=== PATIENT | female | born 1955 | race Caucasian/White ===

== ENCOUNTER 2016-11-12 09:12 | Emergency (ER) | payer BC ==
[~2016-11-12] VITALS: Ht 154.9 cm; Wt 128.4 kg
[~2016-11-12 09:12] MED LIST: ALPR.5T PO; ARIP15TA PO; ASCO100083 PO; BUPR150T49 PO; CALC-250 PO; CEPH500C PO; CHOL500019 PO; CPR500T PO; CYAN10007 PO; DCS100C PO; DOCU50LI GT; DOXY100C2 PO; DULO30CA3 PO; DULO60CA6 PO; FRS325T PO; HYDR-2890 PO; HYDR-3714 PO; IRON18TA PO; LACT1CAP62 PO; MAGN400T6 PO; MEDR5TAB4 PO; MELO-195 PO; MELO15TA14 PO; METF500T8 PO; MULT-608 PO; MULT1CAP27 PO; OMEP20CA12 PO; OXYC-12 PO; PAPA100T PO; POTASSIUM PO; PRED10TA PO; TRAZ150T42 PO; ZLP5T PO; [UNRECOGNIZED DRUG - CODE] PO; [UNRECOGNIZED DRUG - OTHER] MC; [UNRECOGNIZED DRUG - OTHER] PO
--- OUTSIDE RECORDS SUMMARY | 2016-11-12 09:18 | XMS REPORT | Continuity of Care Document ---
Author Author [facility] Organization [facility] Address Unknown Phone Unavailable Care Team Providers Care Building Materials Sales Attendant Name Role Phone SETH CLEMENS DO PCP Insurance Providers Payer Name Policy Number Subscriber Name Relationship [id number] Bhanu Gomez Advance Directives Directive Response Recorded Date/Time Advance Directives No 05/01/14 8:43am Health Care Power of Development Vice President No 05/01/14 8:43am Organ Donor Yes 05/01/14 8:43am Problems Active Problems Medical Problem Onset Date Status Abdominal wall pain Unknown Acute Medications Current Home Medications Medication Dose Units Route Directions Days/Qty Instructions Start Date Alprazolam 0.5 Mg 1 Tab Oral Daily 04/25/10 Zolpidem Tartrate 5 Mg 5 Mg Oral Bedtime 10/16/13 Meloxicam (Mobic) 15 Mg 15 Mg Oral Daily 10/16/13 Metformin Hcl (Glucophage Xr) 500 Mg 1 Each Oral Daily With Meal Magnesium Oxide 400 Mg 1 Each Oral Daily With Food 10/16/13 Duloxetine Hcl 30 Mg 30 Mg Oral Daily 03/19/14 7-Oxodehydroepiandrosterone 5 Gm 5 Gm Miscell Daily 03/19/14 Multivitamins 1 Each 2 Each Oral Twice A Day 04/01/14 Cyanocobalamin 1,000 Mcg 2,500 Mcg Oral Daily 04/01/14 Cholecalciferol (Vitamin D3) 50,000 Unit 50,000 Unit Oral Weekly 11/14 Papain 100 Mg 3 Tab Oral After Meals 04/01/14 Lactobacillus Acidophilus 1 Each 1 Each Oral Daily 04/01/14 Hydrocodone Bit/Acetaminophen 1 Each 1 Each Oral Every 4HRS as needed for Pain 40 04/06/14 Iron 18 Mg 65 Mg Oral Every Other Day 04/24/14 Omeprazole 20 Mg 20 Mg Oral Daily 30 05/01/14 Past Home Medications Medication Directions Ordered Status Aripiprazole 15 Mg Tab, 1 Tab Oral Bedtime 04/25/10 Discontinued Duloxetine Hcl 60 Mg Capsule.dr, 2 Each Oral Daily 04/25/10 Discontinued Meloxicam 15 Mg Tablet, 1 Each Oral Daily 04/25/10 Discontinued Multivitamins 1 Tab Tablet, 1 Tab Oral Daily 04/25/10 Discontinued [Potassium] , Oral Daily 04/25/10 Discontinued Oxycodone Hcl/Acetaminophen 1 Each Tablet, 1 Each Oral Every 6 Hours as needed 05/30/10 Discontinued Ferrous Sulfate 325 Mg Tab, 325 Mg Oral Daily 05/30/10 Discontinued Docusate Sodium 100 Mg/10 Ml Liquid, 100 Mg G Tube Daily 05/30/10 Discontinued Doxycycline Hyclate (Vibramycin) 100 Mg Capsule, 1 Each Oral Twice A Day 30/07 Discontinued Ciprofloxacin 500 Mg Tablet, 1 Tab Oral Twice A Day 05/30/10 Discontinued Oxycodone Hcl/Acetaminophen 1 Each Tablet, 1 Each Oral Every 6 Hours Discontinued Docusate Sodium 100 Mg Capsule, 100 Mg Oral Twice A Day 04/25/12 Discontinued Medroxyprogesterone Acetate (Provera) 5 Mg Tablet, 1 Each Oral Daily Discontinued Trazodone Hcl 150 Mg Tablet, 150 Mg Oral Bedtime 04/25/12 Discontinued Hydrocodone Bit/Acetaminophen 1 Each Tablet, 1 Each Oral Four Times Daily as needed 04/25/12 Discontinued Calcium Carbonate/Vitamin D3 1 Each Tablet, 1 Each Oral Daily 10/16/13 Discontinued Cyanocobalamin 1,000 Mcg Tablet.sa, 1000 Mcg Oral Daily 10/16/13 Discontinued Ascorbic Acid 1,000 Mg Tab.chew, 1000 Mg Oral Daily 10/16/13 Discontinued Cephalexin Monohydrate (Keflex) 500 Mg Capsule, 1 Each Oral Four Times Daily 10/17/13 Discontinued Bupropion Hcl 150 Mg Tablet.sa, 150 Mg Oral Daily 03/19/14 Discontinued Hydrocodone Bit/Acetaminophen 1 Tab Tablet, 1 Tab Oral As Needed as needed for Pain 04/01/14 Discontinued Prednisone 10 Mg Tablet, 10 Mg Oral As Directed 04/01/14 Discontinued [Uvaursa] , 880 Mg Oral Daily 04/01/14 Discontinued Shark Cartilage 500 Mg Capsule, 2000 Mg Oral Twice A Day 04/01/14 Discontinued Social History Social History Problem Response Recorded Date/Time Alcohol Use Denies Use 04/24/2014 10:48am Recreational Drug Use No 04/24/2014 10:48am Recent Foreign Travel No 01/07/2016 1:06pm Sexually Transmitted Disease No 04/24/2014 10:48am Hospital Discharge Instructions No hospital discharge instructions. Plan of Care Prescriptions See Medication Section Functional Status No functional status results. Allergies, Adverse Reactions, Alerts No known allergies. Immunizations Name Given Type Date of Pneumonia Vaccine 10/01/11 Historical Date of Influenza Vaccine 07/17/13 Historical Vital Signs No known vital signs results. Results Pending Laboratory Results Test Name Collection Date/Time Procedures Procedure Status Date Provider(s) Color Doppler echocardiography Active 01/03/16 ATILIO WELLER Encounters Encounter Location Arrival/Admit Date Discharge/Depart Date Attending Provider Discharged Recurring [facility] 01/18/16 11:33am 3:00pm CHIQUITA POLLOCK MD Registered Clinic [facility] 01/11/16 2:07pm CHIQUITA POLLOCK MD Registered Clinic [facility] 01/07/16 2:41pm CHIQUITA POLLOCK MD Registered Clinic [facility] 01/03/16 3:56pm SETH CLEMENS DO Registered Clinic [facility] 01/03/16 1:26pm ATILIO TINOCO
[2016-11-12 09:34] LABS: BASOPHILS % (AUTO) 0 % (0-10); EOSINOPHILS # (AUTO) 0.3 10^3/uL (0.0-0.3); EOSINOPHILS % (AUTO) 3 % (0-10); LYMPHOCYTES % (AUTO) 30 % (12-44); MEAN CORPUSCULAR HEMOGLOBIN 33 PG (25-34); MEAN CORPUSCULAR HGB CONC 33 G/DL (32-36); MEAN CORPUSCULAR VOLUME 98 FL (80-99); MEAN PLATELET VOLUME 10.7 FL (7.4-10.4); MONOCYTES # (AUTO) 1.2 X 10^3 (0.0-1.0); MONOCYTES % (AUTO) 11 % (0-12); NEUTROPHILS # (AUTO) 5.6 X 10^3 (1.8-7.8); NEUTROPHILS % (AUTO) 55 % (42-75); PLATELET COUNT 242 10^3/uL (130-400); RED BLOOD COUNT 4.53 10^6/uL (4.35-5.85); RED CELL DISTRIBUTION WIDTH 14.3 % (10.0-14.5); WHITE BLOOD COUNT 10.1 10^3/uL (4.3-11.0)
[2016-11-12 09:49] LABS: ALANINE AMINOTRANSFERASE 11 U/L (0-55); ALBUMIN 3.8 G/DL (3.2-4.5); ANION GAP 14 MMOL/L (5-14); ASPARTATE AMINO TRANSFERASE 16 U/L (5-34); BILIRUBIN,TOTAL 0.3 MG/DL (0.1-1.0); BLOOD UREA NITROGEN 8 MG/DL (7-18); BUN/CREATININE RATIO 13; CALCIUM 9.2 MG/DL (8.5-10.1); CARBON DIOXIDE 25 MMOL/L (21-32); CHLORIDE 103 MMOL/L (98-107); CREATININE SERUM 0.63 MG/DL (0.60-1.30); GFR ESTIMATED > 60; GLUCOSE 72 MG/DL (70-105); POTASSIUM 4.1 MMOL/L (3.6-5.0); SODIUM 142 MMOL/L (135-145); TOTAL PROTEIN 7.5 G/DL (6.4-8.2)
--- NOTE | 2016-11-12 09:54 | Diagnostic Imaging Report ---
INDICATION: Short of breath. Chest pain EXAMINATION: Frontal chest 11/12/2016. Comparison made to a chest from 05/15/2011. FINDINGS: Cardiomegaly noted. The pulmonary vasculature is unremarkable. The lungs are clear. No infiltrates or effusions are seen. IMPRESSION: Cardiomegaly, otherwise negative chest. Dictated by: Dictated on workstation # [id number]
[2016-11-12 09:55] LABS: TROPONIN I < 0.30 NG/ML (<0.30)
--- NOTE | 2016-11-12 10:42 | ED Cardiac General ---
History of Present Illness General Chief Complaint: Chest Pain Stated Complaint: CP Nursing Triage Note: c/o heart palpitations with chest pressure. Onset 3 days ago. Denies any pain. No acute distress noted. Source: patient Exam Limitations: no limitations History of Present Illness Time seen by provider: 10:36 Initial Comments The patient is a 61-year-old white female who presents with a sensation somewhere between fluttering and pressure in her left chest. This has been present since . She would not describe this as pain. She reports that she has been known to have a heart murmur for several years. She has been seen by Dr. Cabrera and has yearly follow-ups. She has both stress testing and has had an echocardiogram. She denies change in breathing, diaphoresis or radiation Timing/Duration: 3-4 days Location: central Activities at Onset: none Prior CP/Workup: no prior chest pain, echocardiography, stress test NTG SL AUTO REPAIR SHOP MANAGER: No ASA po AUTO REPAIR SHOP MANAGER: No Allergies and Home Medications Allergies Coded Allergies: No Known Drug Allergies (Unverified , 05/02/10) Home Medications 7-Oxodehydroepiandrosterone 5 Gm Powder 5 GM MC DAILY (Reported) Alprazolam 0.5 Mg Tablet 1 TAB PO DAILY (Reported) Cholecalciferol (Vitamin D3) 50,000 Unit Capsule 50,000 UNIT PO WEEKLY (Reported ) Cyanocobalamin 1,000 Mcg Tablet.sa 2,500 MCG PO DAILY (Reported) Duloxetine Hcl 30 Mg Cap 30 MG PO DAILY (Reported) Hydrocodone Bit/Acetaminophen 1 Each Tablet #40 1 EACH PO Q4H PRN PRN PAIN Prescribed by: BENJAMIN MARRERO on 04/06/14 0937 Iron 18 Mg Tablet 65 MG PO EVERY OTHER DAY (Reported) Lactobacillus Acidophilus 1 Each Capsule 1 EACH PO DAILY (Reported) Magnesium Oxide 400 Mg Tablet 1 EACH PO DAILY WITH FOOD (Reported) Meloxicam 15 Mg Tablet 15 MG PO DAILY (Reported) Metformin Hcl 500 Mg Tab.sr.24h 1 EACH PO DAILY WITH MEAL (Reported) Multivitamins 1 Each Capsule 2 EACH PO BID (Reported) Omeprazole 20 Mg Capsule.dr #30 20 MG PO DAILY Prescribed by: CARIE DEVINE on 05/01/14 0944 Papain 100 Mg Tablet 3 TAB PO PC (Reported) Zolpidem Tartrate 5 Mg Tab 5 MG PO HS (Reported) Review of Systems Constitutional: see HPI EENTM: No Symptoms Reported Respiratory: No Symptoms Reported Cardiovascular: See HPI Palpitations Gastrointestinal: No Symptoms Reported Genitourinary: No Symptoms Reported Musculoskeletal: no symptoms reported Skin: no symptoms reported Psychiatric/Neurological: No Symptoms Reported Endocrine: No Symptoms Reported Hematologic/Lymphatic: No Symptoms Reported Past Ecedawz-Fbimhn-Wubrdi Hx Patient Social History Alcohol Use: Denies Use Recreational Drug Use: No Smoking Status: Never a Smoker Recent Foreign Travel: No Contact w/Someone Who Travel: No Recent Infectious Disease Expo: No Recent Hopitalizations: Yes (BILAT KNEE REPLACEMENTS) Immunizations Up To Date Date of Pneumonia Vaccine: Oct 01, 2011 Date of Influenza Vaccine: Jul 17, 2013 Surgeries HX Surgeries: Yes (STOMACH STAPLING, CARPAL TUNNEL BILAT, BILAT TKR, L SHOULDER ) Respiratory Hx Respiratory Disorders: Yes (SLEEP APNEA) Respiratory Disorders: Sleep Apnea Cardiovascular Hx Cardiac Disorders: No Neurological Hx Neurological Disorders: No Reproductive System Hx Reproductive Disorders: No Sexually Transmitted Disease: No BRUISE TRIMMER History: Tubal Ligation Genitourinary Hx Genitourinary Disorders: No Gastrointestinal Hx Gastrointestinal Disorders: Yes Gastrointestinal Disorders: Gastroesophageal Reflux Musculoskeletal Hx Musculoskeletal Disorders: Yes Musculoskeletal Disorders: Osteoporosis, Arthritis Endocrine Hx Endocrine Disorders: No HEENT HX ENT Disorders: No Cancer Hx Cancer: Yes Cancer: Skin Psychosocial Hx Psychiatric Problems: Yes Behavioral Health Disorders: Anxiety, Depression Integumentary HX Skin/Integumentary Disorder: Yes (RASH TO LOWER ABD XSEV WKS) Blood Transfusions Hx Blood Disorders: No Physical Exam Vital Signs Vital Sign - Last 12Hours 11/12/16 09:27 Temp 97.6 Pulse 85 B/P 124/59 Pulse Ox 98 O2 Delivery Room Air Capillary Refill : Less Than 3 Seconds General Appearance: Other (morbidly obese) HEENT: Normal ENT Inspection Neck: Normal Inspection Respiratory: Chest Non Tender Lungs Clear Normal Breath Sounds No Accessory Muscle Use No Respiratory Distress Cardiovascular: Regular Rate, Rhythm No Edema No Gallop No JVD No Murmur Normal Peripheral Pulses Gastrointestinal: Normal Bowel Sounds No Organomegaly No Pulsatile Mass Non Tender Extremity: Normal Capillary Refill Normal Inspection Normal Range of Motion Non Tender No Calf Tenderness No Pedal Edema Neurologic/Psychiatric: Alert Oriented x3 No Motor/Sensory Deficits Normal Mood/Affect Skin: Normal Color Warm/Dry Lymphatic: No Adenopathy Progress/Results/Core Measures Results/Orders Lab Results Laboratory Tests Test 11/12/16 09:27 Range/Units Alanine Aminotransferase (ALT/SGPT) 11 0-55 U/L Albumin 3.8 3.2-4.5 G/DL Alkaline Phosphatase 128 40-136 U/L Anion Gap 14 5-14 MMOL/L Aspartate Amino Transf (AST/SGOT) 16 5-34 U/L BUN/Creatinine Ratio 13 Basophils # (Auto) 0.0 0.0-0.1 10^3/uL Basophils (%) (Auto) 0 0-10 % Blood Urea Nitrogen 8 7-18 MG/DL Calcium Level 9.2 8.5-10.1 MG/DL Carbon Dioxide Level 25 21-32 MMOL/L Chloride Level 103 98-107 MMOL/L Creatinine 0.63 0.60-1.30 MG/DL Eosinophils # (Auto) 0.3 0.0-0.3 10^3/uL Eosinophils (%) (Auto) 3 0-10 % Estimat Glomerular Filtration Rate > 60 Glucose Level 72 70-105 MG/DL Hematocrit 44 35-52 % Hemoglobin 14.7 11.5-16.0 G/DL Lymphocytes # (Auto) 3.0 1.0-4.0 X 10^3 Lymphocytes (%) (Auto) 30 12-44 % Mean Corpuscular Hemoglobin 33 25-34 PG Mean Corpuscular Hemoglobin Concent 33 32-36 G/DL Mean Corpuscular Volume 98 80-99 FL Mean Platelet Volume 10.7 H 7.4-10.4 FL Monocytes # (Auto) 1.2 H 0.0-1.0 X 10^3 Monocytes (%) (Auto) 11 0-12 % Neutrophils # (Auto) 5.6 1.8-7.8 X 10^3 Neutrophils (%) (Auto) 55 42-75 % Platelet Count 242 130-400 10^3/uL Potassium Level 4.1 3.6-5.0 MMOL/L Red Blood Count 4.53 4.35-5.85 10^6/uL Red Cell Distribution Width 14.3 10.0-14.5 % Sodium Level 142 135-145 MMOL/L Total Bilirubin 0.3 0.1-1.0 MG/DL Total Protein 7.5 6.4-8.2 G/DL Troponin I < 0.30 <0.30 NG/ML White Blood Count 10.1 4.3-11.0 10^3/uL My Orders Orders-OPAL LYNN MD Ekg Tracing (11/12/16 09:28) Cbc With Automated Diff (11/12/16 09:28) Comprehensive Metabolic Panel (11/12/16 09:28) Troponin I (11/12/16 09:28) Chest 1 View, Ap/Pa Only (11/12/16 09:28) Vital Signs/I&O Vital Sign - Last 12Hours 11/12/16 11/12/16 09:27 09:31 Temp 97.6 Pulse 85 B/P 124/59 Pulse Ox 98 O2 Delivery Room Air Room Air Blood Pressure Mean: 80 Departure Communication Progress Notes The electrocardiogram was negative for acute changes. Troponin was negative. Chest x-ray showed no pathology although the heart was reported as slightly enlarged. Impression Impression: Primary Impression: palpitation Disposition: 01 HOME, SELF-CARE Condition: Stable/Unchanged Departure-Patient Inst. Referrals: SETH CLEMENS DO (PCP/Family) Primary Care Physician Patient Instructions: Chest Pain That Is Not Caused by the Heart (DC) Add. Discharge Instructions: All discharge instructions reviewed with patient and/or family. Voiced understanding. Call Dr. Cabrera's office tomorrow for more immediate follow-up. OPAL LYNN MD Nov 12, 2016 10:42
[2016-11-12 11:20] VITALS: BP 128/70
== END 2016-11-12 11:20 | disposition home or self-care (01) ==
LOC: EDUNIT# 09:12 → ER 09:13
DX: R00.2 Palpitations (principal); E11.9 Type 2 diabetes mellitus without complications; E66.01 Morbid (severe) obesity due to excess calories; Z79.84 Long term (current) use of oral hypoglycemic drugs; Z79.899 Other long term (current) drug therapy
CPT/HCPCS: 36415; 71010; 80053; 84484; 85025; 93005